=== PATIENT | female | born 1970 | race Two or more races ===

== ENCOUNTER → 2017-06-08 | Outpatient (REF) | payer OTHER ==
[2017-06-08 18:09] LABS: MEAN CORPUSCULAR HEMOGLOBIN 29.8 pg (27.0-33.0); MEAN CORPUSCULAR HGB CONC 34.2 g/dl (32.0-36.5); MEAN CORPUSCULAR VOLUME 87.1 fl (80.0-96.0); RED CELL DISTRIBUTION WIDTH 12.7 % (11.5-14.5); WHITE BLOOD COUNT 8.9 K/mm3 (4.0-10.0)
[2017-06-08 18:17] LABS: ALBUMIN 4.1 GM/DL (3.2-5.2); ALBUMIN/GLOBULIN RATIO 1.28 (1.00-1.93); ALKALINE PHOSPHATASE 83 U/L (45-117); ALT/SGPT 57 U/L (12-78); ANION GAP 10 MEQ/L (8-16); AST/SGOT 28 U/L (15-37); BILIRUBIN,TOTAL 0.4 MG/DL (0.2-1.0); BLOOD UREA NITROGEN 18 MG/DL (7-18); CALCIUM LEVEL 9.6 MG/DL (8.5-10.1); CARBON DIOXIDE LEVEL 25 MEQ/L (21-32); CHLORIDE LEVEL 102 MEQ/L (98-107); CHOLESTEROL LEVEL 241 MG/DL (<200); CREATININE FOR GFR 0.87 MG/DL (0.55-1.02); FREE T4 1.02 NG/DL (0.76-1.46); GLOMERULAR FILTRATION RATE > 60.0 (>58); GLUCOSE, FASTING 75 MG/DL (70-105); POTASSIUM SERUM 3.9 MEQ/L (3.5-5.1); SODIUM LEVEL 137 MEQ/L (136-145); TOTAL PROTEIN 7.3 GM/DL (6.4-8.2); TRIGLYCERIDES LEVEL 204 MG/DL (<150)
== END ==
LOC: M SFHCLERA 14:27
PROVIDERS: ATTEND Family Medicine
DX: E11.9 Type 2 diabetes mellitus without complications (principal)

== ENCOUNTER → 2017-12-10 | Outpatient (REF) | payer OTHER | LOC: M SFHCLERA 09:39 | DX: J00 Acute nasopharyngitis [common cold] (principal) ==

== ENCOUNTER → 2018-01-28 | Outpatient (REF) | payer OTHER ==
[2018-01-29 09:11] LABS: CHLAMYDIA DNA AMPLIFICATION NEGATIVE (NEGATIVE); GC DNA AMPLIFICATION NEGATIVE (NEGATIVE)
== END ==
LOC: M SFHCLERA 16:45
DX: R30.0 Dysuria (principal)
CPT/HCPCS: 87186

== ENCOUNTER → 2019-04-25 | Outpatient (REF) | payer OTHER ==
[2019-04-25 20:14] LABS: APPEARANCE, URINE CLEAR (CLEAR); BACTERIA, URINE AUTO NEGATIVE (NEGATIVE); BASO # 0.1 10^3/uL (0.0-0.2); BASO % 0.8 % (0.0-1.0); BILIRUBIN, URINE AUTO NEGATIVE (NEGATIVE); BLOOD, URINE BLOOD NEGATIVE (NEGATIVE); COLOR, URINE YELLOW (YELLOW); EOS # 0.2 10^3/uL (0.0-0.50); EOS % 1.8 % (0.0-3.0); GLUCOSE, URINE (UA) AUTO NEGATIVE (NEGATIVE); HEMOGLOBIN 12.6 g/dl (12.0-15.5); KETONE, URINE AUTO NEGATIVE (NEGATIVE); LEUKOCYTE ESTERASE, URINE AUTO NEGATIVE (NEGATIVE); LYMPH # 3.2 10^3/uL (1.5-4.5); LYMPH % 30.9 % (24.0-44.0); MEAN CORPUSCULAR HEMOGLOBIN 28.6 pg (27.0-33.0); MEAN CORPUSCULAR HGB CONC 32.3 g/dl (32.0-36.5); MEAN CORPUSCULAR VOLUME 88.4 fl (80.0-96.0); MONO # 0.7 10^3/uL (0.0-0.8); NEUTROPHILS # 6.1 10^3/uL (1.8-7.7); NITRITE, URINE AUTO NEGATIVE (NEGATIVE); PLATELET COUNT, AUTOMATED 254 10^3/uL (150-450); PROTEIN, URINE AUTO NEGATIVE (NEGATIVE); RBC, URINE AUTO 0 /HPF (0-3); RED BLOOD COUNT 4.41 10^6/uL (4.00-5.40); SPECIFIC GRAVITY URINE AUTO 1.014 (1.002-1.035); SQUAMOUS EPITHELIAL CELL UR AU 1 /HPF (0-6); UROBILINOGEN, URINE AUTO 0.2 mg/dL (0.0-2.0); WBC, URINE AUTO 1 /HPF (0-3); WHITE BLOOD COUNT 10.4 10^3/uL (4.0-10.0)
[2019-04-25 20:27] LABS: HEMOGLOBIN A1c 5.6 %
[2019-04-25 20:45] LABS: CREATININE, URINE 75.6 MG/DL; MALB URINE SIEMENS 5.1 MG/L; MAU/CREAT RATIO 6.7 MCG/MG (0.0-30.0)
[2019-04-25 20:46] LABS: ALBUMIN 3.8 GM/DL (3.2-5.2); ALT/SGPT 51 U/L (12-78); BILIRUBIN,TOTAL 0.2 MG/DL (0.2-1.0); BLOOD UREA NITROGEN 14 MG/DL (7-18); CALCIUM LEVEL 8.9 MG/DL (8.5-10.1); CARBON DIOXIDE LEVEL 27 MEQ/L (21-32); CHLORIDE LEVEL 106 MEQ/L (98-107); CHOLESTEROL LEVEL 182 MG/DL (<200); CHOLESTEROL RISK RATIO 3.872 (<5); GLOMERULAR FILTRATION RATE > 60.0 (>58); GLUCOSE, FASTING 80 MG/DL (70-100); HDL CHOLESTEROL 47 MG/DL (>40); LDL CHOLESTEROL 99 MG/DL (<100); NON-HDL-C 135 MG/DL; POTASSIUM SERUM 3.8 MEQ/L (3.5-5.1); SODIUM LEVEL 141 MEQ/L (136-145); TOTAL PROTEIN 6.9 GM/DL (6.4-8.2); TRIGLYCERIDES LEVEL 181 MG/DL (<150)
== END ==
LOC: M SFHCLERA 16:41
PROVIDERS: ATTEND Family Medicine
DX: E11.9 Type 2 diabetes mellitus without complications (principal); N39.46 Mixed incontinence

== ENCOUNTER → 2019-04-27 | Outpatient (CLI) | payer OTHER ==
--- NOTE | 2019-04-27 15:51 | REP ---
Left upper extremity deep vein duplex ultrasound: The deep veins demonstrate normal compression, normal Doppler color flow and normal Doppler waveforms with respiration and augmentation from the brachial veins to the jugular vein. Impression: There is no left upper extremity deep vein thrombus. Electronically Signed by Raoul Varela MD 04/27/2019 03:42 P
--- NOTE | 2019-04-27 16:03 | REP ---
Clinical: Left lower extremity pain and swelling . Technique: Ruiz scale and color Doppler evaluation using linear high frequency transducer. Findings: Ultrasound examination of the left lower extremity deep venous structures from the common femoral vein to the popliteal vein demonstrates normal compressibility flow and wave patterns in response to respiration and augmentation. There is no evidence for deep venous thrombosis. Impression: No evidence for deep venous thrombosis. Electronically Signed by Philip Pierre MD 04/27/2019 03:55 P
== END ==
LOC: M RAD 14:47
PROVIDERS: ATTEND Family Medicine
DX: M79.89 Other specified soft tissue disorders (principal)

== ENCOUNTER → 2019-05-13 | Outpatient (REF) | payer OTHER ==
[2019-05-13 18:11] LABS: APPEARANCE, URINE CLEAR (CLEAR); BACTERIA, URINE AUTO 1+ (NEGATIVE); BILIRUBIN, URINE AUTO NEGATIVE (NEGATIVE); BLOOD, URINE BLOOD NEGATIVE (NEGATIVE); COLOR, URINE YELLOW (YELLOW); GLUCOSE, URINE (UA) AUTO NEGATIVE (NEGATIVE); KETONE, URINE AUTO NEGATIVE (NEGATIVE); LEUKOCYTE ESTERASE, URINE AUTO NEGATIVE (NEGATIVE); MUCUS, URINE SMALL (NEGATIVE); NITRITE, URINE AUTO NEGATIVE (NEGATIVE); PROTEIN, URINE AUTO NEGATIVE (NEGATIVE); RBC, URINE AUTO 1 /HPF (0-3); SPECIFIC GRAVITY URINE AUTO 1.023 (1.002-1.035); SQUAMOUS EPITHELIAL CELL UR AU 1 /HPF (0-6); UROBILINOGEN, URINE AUTO 0.2 mg/dL (0.0-2.0); WBC, URINE AUTO 1 /HPF (0-3)
== END ==
LOC: M LAB REF 17:08
PROVIDERS: ATTEND Obstetrics & Gynecology
DX: N39.46 Mixed incontinence (principal)

== ENCOUNTER → 2019-05-31 | Outpatient (CLI) | payer OTHER ==
--- NOTE | 2019-05-31 16:10 | REP ---
Clinical: Right foot and ankle pain. Technique: AP, lateral, bilateral oblique views of the right ankle. Findings: Soft-tissue swelling. Subtle nondisplaced fracture at the tip of the medial malleolus cannot definitively be excluded and requires correlation. No other fracture or dislocation is identified or suggested. Impression: Swelling. Cannot exclude small avulsion fracture at the tip of the medial malleolus. Electronically Signed by Philip Pierre MD 05/31/2019 04:02 P
--- NOTE | 2019-05-31 16:12 | REP ---
Clinical: Right foot pain. Technique: AP, lateral, bilateral oblique views of the right foot. Findings: No obvious acute fracture dislocation is appreciated. Ankle swelling is suggested. Small irregularity at the tip of the medial malleolus cannot be excluded and should be correlated clinically. Lateral view demonstrates small calcaneal heal spur. Impression: Swelling. As above. Electronically Signed by Philip Pierre MD 05/31/2019 04:03 P
== END ==
LOC: M LRY 15:45
PROVIDERS: ATTEND Physician Assistant
DX: M25.471 Effusion, right ankle (principal); M77.31 Calcaneal spur, right foot; S99.921A Unspecified injury of right foot, initial encounter; X50.1XXA Overexertion from prolonged static or awkward postures, initial encounter; Y92.9 Unspecified place or not applicable
CPT/HCPCS: 73610; 73630; 96372; G0463; J1885

== ENCOUNTER → 2019-08-31 | Outpatient (REF) | payer OTHER ==
[~2019-08-31] MED LIST: METF500T13 PO; METO25TA4 PO; OMEG10002 PO; VITA50005 PO
[2019-08-31 17:15] LABS: BASO # 0.1 10^3/uL (0.0-0.2); BASO % 0.6 % (0.0-1.0); EOS # 0.3 10^3/uL (0.0-0.5); EOS % 3.3 % (0.0-3.0); HEMATOCRIT 41.8 % (36.0-47.0); HEMOGLOBIN 13.2 g/dl (12.0-15.5); LYMPH # 3.1 10^3/uL (1.5-5.0); LYMPH % 39.4 % (24.0-44.0); MEAN CORPUSCULAR HEMOGLOBIN 28.6 pg (27.0-33.0); MEAN CORPUSCULAR HGB CONC 31.6 g/dl (32.0-36.5); MEAN CORPUSCULAR VOLUME 90.5 fl (80.0-96.0); MONO # 0.4 10^3/uL (0.0-0.8); MONO % 5.6 % (0.0-5.0); NEUTROPHILS % 50.7 % (36.0-66.0); PLATELET COUNT, AUTOMATED 234 10^3/uL (150-450); RED BLOOD COUNT 4.62 10^6/uL (4.00-5.40); WHITE BLOOD COUNT 7.9 10^3/uL (4.0-10.0)
[2019-08-31 17:35] LABS: BLOOD UREA NITROGEN 18 MG/DL (7-18); CALCIUM LEVEL 9.3 MG/DL (8.5-10.1); CARBON DIOXIDE LEVEL 26 MEQ/L (21-32); CHLORIDE LEVEL 106 MEQ/L (98-107); CREATININE FOR GFR 0.94 MG/DL (0.55-1.30); FREE T4 1.11 NG/DL (0.76-1.46); GLOMERULAR FILTRATION RATE > 60.0 (>58); GLUCOSE, FASTING 91 MG/DL (70-100); POTASSIUM SERUM 4.2 MEQ/L (3.5-5.1); SODIUM LEVEL 139 MEQ/L (136-145); TOTAL 25(OH) VITAMIN D 23.3 NG/ML (30.0-100.0)
[2019-08-31 19:01] LABS: HEMOGLOBIN A1c 5.4 %
== END ==
LOC: M SFHCLERA 11:01
PROVIDERS: ATTEND Family Medicine
DX: Z01.818 Encounter for other preprocedural examination (principal); R79.89 Other specified abnormal findings of blood chemistry; D72.829 Elevated white blood cell count, unspecified; E55.9 Vitamin D deficiency, unspecified
CPT/HCPCS: 80048; 82306; 83036; 84439; 84443; 85025; 93005; G0463

== ENCOUNTER 2019-09-08 14:09 | Day surgery (SDC) | payer OTHER ==
[~2019-09-08] VITALS: Ht 160 cm; Wt 90.6 kg
[~2019-09-08 14:09] MED LIST changes: +LIDOCAINE 2% INJ 100 MG/5 ML SDV (FOR ANES.) As Ordered ONE; +MIDAZOLAM INJ 2 MG/2 ML VIAL (J2250) As Ordered ONE; +PROPOFOL 200 MG/20 ML VIAL As Ordered ONE; +fentaNYL 100 MCG/2 ML INJECTION (J3010) As Ordered ONE
[2019-09-08] MEDS ORDERED: ceFAZolin SOD 2 GM in IV 1 EA IV ONE (16:00)
[2019-09-08] MEDS ORDERED: VASOPRESSIN INJ 20 UNITS/ML VIAL As Ordered ONE (16:02)
[2019-09-08] MEDS ORDERED: PROPOFOL 200 MG/20 ML VIAL As Ordered ONE (16:10)
[2019-09-08] MEDS ORDERED: LIDOCAINE 2% INJ 100 MG/5 ML SDV (FOR ANES.) As Ordered ONE (16:10)
[2019-09-08] MEDS ORDERED: fentaNYL 100 MCG/2 ML INJECTION (J3010) As Ordered ONE (17:01)
[2019-09-08] MEDS ORDERED: KETOROLAC 60 MG/2 ML VIAL (J1885) As Ordered ONE (17:14)
[2019-09-08] MEDS ORDERED: ONDANSETRON 4MG/2ML VIAL (J2405) As Ordered ONE (17:14)
[2019-09-08] MEDS ORDERED: METOCLOPRAMIDE INJ 10MG/2ML VIAL (J2765) As Ordered ONE (17:14)
[2019-09-08] MEDS ORDERED: ACETAMINOPHEN 1000MG 100ML IV BTL (OFIRMEV) (J0131 PER 10MG) As Ordered ONE (17:15)
[2019-09-08] MEDS ORDERED: IBUPROFEN 600 MG TAB PO PRN (18:15)
[2019-09-08] MEDS ORDERED: PERCOCET 5MG/325MG TAB PO PRN (18:15)
[2019-09-08] MEDS ORDERED: fentaNYL 100 MCG/2 ML INJECTION (J3010) IV PRN (18:15)
[2019-09-08] MEDS ORDERED: LR 1,000 ML IV SCH ×2 (18:15)
[2019-09-08] MEDS ORDERED: ONDANSETRON 4MG/2ML VIAL (J2405) IV PRN (18:15)
[2019-09-08 19:12] VITALS: BP 122/75
--- NOTE | 2019-09-08 19:16 | RO ---
DATE OF PROCEDURE: 09/08/2019 PREOPERATIVE DIAGNOSIS: Stress urinary incontinence with urethral hypermobility. POSTOPERATIVE DIAGNOSIS: Stress urinary incontinence with urethral hypermobility. Findings as expected. PROCEDURE: Midurethral sling Desara with cystourethroscopy. SURGEON: Dr. Michaela Terrell SALES ATTENDANT: None. ANESTHESIA: LMA. DESCRIPTION OF PROCEDURE: Jess was brought to the operating room where sufficient LMA anesthesia was induced. She was prepped, draped and positioned in the usual sterile fashion. She did have some pelvic laxity, which was expected based on the preoperative findings, and the anterior wall of the vagina was grasped with an Allis, injected with diluted vasopressin and the initial tracks for the trocar for the Desara midurethral retropubic sling were started. Then, while setting up the Desara, placed the cystoscope to visualize the bladder. There were normal ureteral orifices, normal trigone. Patient has a more oval oblong bladder. There did not appear to be any abnormality to it. We were careful about our shoulder landmarks because she is a little narrower than some just overall, but so is the bladder so we took care to pay attention to those anatomic landmarks. Then, the bladder was again emptied. The red rubber shod stylet was placed in the urethra with the urethra displaced towards the patient's right so that the left-sided trocar could be placed. There was actually quite a bit less resistance than typical. I did not run into any problem from her previous surgery or any feeling of scar tissue. We did not have any trouble passing the Desara through the skin either. I did not need a knife for that, and I did not feel any undue resistance. We went ahead and scoped her again, and we could see the course of the trocar without any unusual thickness or swelling to indicate bleeding, and there was no puckering or bunching of the tissues to indicate that it was too close to the bladder, so definitely appeared to be in the right location. We went ahead and held the string above and pulled the introducer back out, and connected to the other end of the Desara sling, emptied the bladder out again. And then using the red rubber shod stylet to displace the bladder to the patient's left, we placed the right-sided arm of the sling. Following placement, we again scoped her, manipulated the sling. We did not see any evidence of anything else in between bladder and the sling, but we also did not see any evidence of the trocar catching on the bladder or puckering the tissues, so we had placement in the proper location, and, again, did not need the knife for the skin. Tissues are a little less than average tensile, certainly no resistance to placement, but this also indicated no palpable feeling of running into any previous mesh from the patient's previous support treatment. Having placed both arms, we went ahead and took the string off the introducer, pulled that back out and walter the two arms up smoothly, making sure to have no kinking, holding the tissues so that I would draw through the tissues flush against the pubic bone. We then used both the red rubber shod stylet and the #[address] spacers to place a tension-free placement of the Desara. We also kept the spacers in when we removed the sheathing so as not to shift the mesh. We then trimmed the mesh at the skin above, and closed the abdominal wounds with interrupted stitches of #3-0 Vicryl, and then closed the vaginal wound with #2-0 Vicryl in a running locked stitch with good approximation and hemostasis at both layers. The procedure was then ended. Estimated blood loss for the procedure: About 30 mL or less. Fluid replacement: Crystalloid. Complications: None. Condition and Disposition: Jess tolerated the procedure well and was recovering in the recovery room in good condition.
== END 2019-09-08 19:12 | disposition home or self-care (01) ==
LOC: M SDC 14:09
PROVIDERS: ATTEND Obstetrics & Gynecology
DX: N39.3 Stress incontinence (female) (male) (principal); N36.41 Hypermobility of urethra; E11.9 Type 2 diabetes mellitus without complications; I47.1 Supraventricular tachycardia; R79.89 Other specified abnormal findings of blood chemistry; D72.829 Elevated white blood cell count, unspecified; E55.9 Vitamin D deficiency, unspecified; G43.909 Migraine, unspecified, not intractable, without status migrainosus; K21.9 Gastro-esophageal reflux disease without esophagitis; R06.02 Shortness of breath; R06.83 Snoring; T88.59XD Other complications of anesthesia, subsequent encounter; Z88.0 Allergy status to penicillin; Z88.1 Allergy status to other antibiotic agents; Z88.5 Allergy status to narcotic agent; Z79.899 Other long term (current) drug therapy; Z87.442 Personal history of urinary calculi; Z90.710 Acquired absence of both cervix and uterus; Z87.81 Personal history of (healed) traumatic fracture; Z98.51 Tubal ligation status; Z87.891 Personal history of nicotine dependence
CPT/HCPCS: 57288; C1771; J0131; J0690; J1885; J2250; J2405; J2765; J3010